=== PATIENT | female | born 1945 | race Caucasian/White ===

== ENCOUNTER 2020-09-28 08:59 | Emergency (ER) | payer MEDICARE, SELFPAY ==
[2020-09-28 09:01] VITALS: BP 146/78; PULSE 119; RESP 18; TEMP 36.6; O2SAT 99; BMI 33.0
--- NOTE | 2020-09-28 09:04 | ED_ITS ---
ED Disposition Clinical Impression: Erysipelas Disposition: Home, Self-Care Condition on Discharge: Good Instructions: Cellulitis Referrals: Panda Newell MD [Primary Care Provider] - 3 days Time of Disposition: 09:33 - Critical Care Critical Care Time: No Attestation: On , the high probability of a clinically significant, sudden or life threatening deterioration of the following system(s) required my full and direct attention, intervention and personal management. The time I documented below is in addition to time spent performing reported procedures but includes the following listed in this critical care notation. Medical Decision Making - Medical Records Medical records reviewed: Yes: I reviewed the patient's medical records. - Cade Inquiry Pt receiving controlled substance: No Medical Decision Narrative: 75yo F evaluated for possible infection of her left great toe after being scratched by her cat. Physical exam is not terribly remarkable except for 2 lesions consistent with a blood blister. No warmth, minimally tender, no pain with range of motion. We will start the patient on Augmentin to cover possible infection. Patient follow-up PCP Wednesday or Wednesday. General Adult HPI - General Stated complaint: Left big toe is swollen Time Seen by Provider: 09/28/20 09:04 - History of Present Illness HPI narrative: 75yo F with past medical history significant diabetes reports the emergency department secondary to concern for possible infection in her great toe. Patient reports the cat ran across her foot a week ago and she now has a few areas that are tender to palpate and appear to have small blisters. Patient denies any fever, nausea/vomit/diarrhea. Has not been seen for this until today. Denies pain with range of motion. Has occasional pain with walking. - Related Data Allergies Allergy/AdvReac Type Severity Reaction Status Date / Time DENTAL GLUE Allergy Unknown Uncoded 05/25/17 15:04 From CONTAC 12-HOUR Allergy Unknown Uncoded 05/25/17 15:04 INSULIN Allergy Unknown Uncoded 05/25/17 15:04 LATEX Allergy Unknown Uncoded 05/25/17 15:04 NUTS Allergy Unknown Uncoded 05/25/17 15:04 PCN (PENICILLIN) Allergy Unknown Uncoded 05/25/17 15:04 [facility] History - Hepatitis A Screen Drug use history?: No Attestation statement:: This patient has been screened for Hepatitis A risk factors. I have reviewed the patient's past medical history: Yes Medical History: Reports:: Diabetes Mellitus Type 2 ROS Obtained: Yes All systems reviewed & no additional complaints Physical Exam - General General appearance: alert, in no apparent distress - Head Head exam: atraumatic - Respiratory Respiratory exam: Absent: respiratory distress - Cardiovascular Cardiovascular exam: Present: regular rate, normal rhythm - Abdominal Exam Abdominal exam: Present: soft - Expanded Lower Extremity Exam Left Ankle exam: Present: normal inspection, full ROM. Absent: tenderness Foot/toe exam: Present: other (Left great toe with 2 blisters. No erythema. No pain with range of motion.) Neurovascular/Tendon exam: Present: normal capillary refill. Absent: pulse deficit, motor deficit, sensory deficit - Neurological Exam Neurological exam: Present: alert, oriented X3 - Psychiatric Psychiatric exam: Present: normal affect, normal mood - Skin Skin exam: Present: warm, dry, intact, normal color
[2020-09-28 09:30] VITALS: BP 117/58; PULSE 109; O2SAT 94
[2020-09-28 09:40] VITALS: BP 146/78; PULSE 98; RESP 18; TEMP 36.6; O2SAT 99
== END 2020-09-28 09:43 | disposition home or self-care (01) ==
PROVIDERS: Emergency Provider Family Medicine; PCP Family Medicine
DX: A46 Erysipelas (principal); S90.422A Blister (nonthermal), left great toe, initial encounter; E11.9 Type 2 diabetes mellitus without complications; R03.0 Elevated blood-pressure reading, without diagnosis of hypertension; Z88.0 Allergy status to penicillin; Z91.040 Latex allergy status
CPT/HCPCS: 99281

== ENCOUNTER 2020-12-12 20:29 | Emergency (ER) | payer MEDICARE, SELFPAY ==
[2020-12-12 20:37] VITALS: PULSE 135; RESP 20; O2SAT 97; BMI 33.4
[2020-12-12 20:40] VITALS: PULSE 135; RESP 18; O2SAT 98; BMI 33.3
--- NOTE | 2020-12-12 21:19 | HMH.EDUTC ---
[facility] [place] Disposition Clinical Impression: Urticaria Allergic reaction Qualifiers: Encounter type: initial encounter Qualified Code(s): T78.40XA - Allergy, unspecified, initial encounter Disposition: Home, Self-Care Condition on Discharge: Good Instructions: Hives, DI for Hives Additional Instructions: RETURN TO THE ER FOR ANY MOUTH OR THROAT SWELLING, CHEST PAIN, OR SHORTNESS OF BREATH. Take the medications as directed. Don't start the oral steroids until tomorrow since you had the shot here tonight. I encourage you to take benedryl every 6 hours for the next few days to try to block whatever you might be allergic to. You could be still getting exposed to it. GO TO THE ER FOR ANY WORSENING SYMPTOMS OR CONCERNS Prescriptions: methylPREDNISolone [Medrol] 4 mg PO DIRECTED 6 Days #21 tab.ds.pk Transmission Status: Received by [facility] #[id number] Referrals: Panda Newell MD [Primary Care Provider] - Time of Disposition: 21:32 Medical Decision Making - Medical Records Medical records reviewed: No: I reviewed the patient's medical records. - Acde Inquiry Pt receiving controlled substance: No Vital Signs: 12/12/20 20:37 12/12/20 20:40 12/12/20 21:24 Temperature 98 F Temperature Source Oral Pulse Rate 121 H Pulse Rate [Left Radial] 135 H 135 H Respiratory Rate 20 18 20 Blood Pressure 000/00 L 02 Sat by Pulse Oximetry 97 98 Oxygen Delivery Method Room Air Orders (Tests/Meds): ED MEDICATIONS Discontinued Medications Generic Name Dose Route Start Last Admin Trade Name Mp PRN Reason Stop Dose Admin Methylprednisolone Sodium Succinate 125 mg 12/12/20 21:18 12/12/20 21:22 Methylprednisolone Sod Succ 125mg Vial IM 12/12/20 21:19 125 mg ONCE ONE Administration [facility] [place] HPI - General Stated complaint: rash on body Time Seen by Provider: 12/12/20 21:20 Mode of Arrival: Ambulatory Source of Information: Patient Limitations: No Limitations Description of Symptoms (Recalled from Triage Doc. by RN): pt was cleaning the air vent in her camper when she started having itching on the inside of her upper arms. pt has a whelped, blistered large rash on the upper insides on her arms, on her abd, and on her legs. pt states there was a fly and thought she may have been bit until it started spreading. HEENT Symptoms (Recalled from RN notes): No Resp Symptoms (Recalled from RN notes): No Skin Symptoms (Recalled from RN notes): Yes MS Symptoms (Recalled from RN notes): No Functional Status (Recalled from RN notes): na - History of Present Illness Provider Complaint: She states that about 1 hour before she came here, she began having itching and hives on both her forearms. Since then the hives have spread and they are now on her chest, back, abdomen, buttocks, upper legs and neck. She denies any shortness of breath, chest pain, and swelling of her mouth or throat. - Related Data Previous Rx's Medication Instructions Recorded Amoxicillin/Potassium Clav 1 tab PO Q12H #14 tab 09/28/20 [Augmentin 875-125 Tablet] methylPREDNISolone [Medrol] 4 mg PO DIRECTED 6 Days #21 12/12/20 tab.[email or web address] Allergies Allergy/AdvReac Type Severity Reaction Status Date / Time DENTAL GLUE Allergy Unknown Uncoded 05/25/17 15:04 From CONTAC 12-HOUR Allergy Unknown Uncoded 05/25/17 15:04 INSULIN Allergy Unknown Uncoded 05/25/17 15:04 LATEX Allergy Unknown Uncoded 05/25/17 15:04 NUTS Allergy Unknown Uncoded 05/25/17 15:04 PCN (PENICILLIN) Allergy Unknown Uncoded 05/25/17 15:04 - Worker's Comp Is this a Worker's Comp case?: No H History - Hepatitis A Screen Drug use history?: No High risk sexual behaviors?: No History of sexually transmitted infection?: No Currently employed?: No Childcare worker?: No Do you have indoor plumbing?: Yes Do you have electricity?: Yes Attestation statement:: This patient has been screened for Hepatitis A risk factors.
[2020-12-12 21:24] VITALS: BP 000/00; PULSE 121; RESP 20; TEMP 36.6
== END 2020-12-12 21:38 | disposition home or self-care (01) ==
PROVIDERS: Emergency Provider Nurse Practitioner Family; PCP Family Medicine
DX: L50.0 Allergic urticaria (principal); E11.9 Type 2 diabetes mellitus without complications; Z88.0 Allergy status to penicillin; Z91.040 Latex allergy status
CPT/HCPCS: G0463; 96372; 99202

== ENCOUNTER 2021-01-02 19:06 | Emergency (ER) | payer MEDICARE, SELFPAY ==
[2021-01-02 19:10] VITALS: BP 162/124; PULSE 110; RESP 16; TEMP 36.6; O2SAT 96; BMI 33.4
--- NOTE | 2021-01-02 19:27 | HMH.EDUTC ---
[facility] [place] Disposition Clinical Impression: Vaginal yeast infection Disposition: Home, Self-Care Condition on Discharge: Good Instructions: DI for Vaginal Yeast Infection, Nystatin Topical Additional Instructions: Use medication as prescribed Make sure to Follow up with OBGYN or your Family Doctor if no improvement or any worsening of symptoms Return if needed Straight to ER if any life threatening symptoms Prescriptions: Nystatin [Nystatin Cr 100,000 Units/GM 30GM] 1 applicatio TP BID 14 Days #1 tube Transmission Status: Pending to [facility] #[id number] Referrals: Panda Newell MD [Primary Care Provider] - As needed Time of Disposition: 19:34 Medical Decision Making - Cade Inquiry Pt receiving controlled substance: No Cade was queried for this patient: No Vital Signs: 01/02/21 19:10 Temperature 97.9 F Temperature Source Temporal Artery Scan Pulse Rate [Left] 110 H Respiratory Rate 16 Blood Pressure [Right Arm] 162/124 H Blood Pressure Mean [Right Arm] 136 02 Sat by Pulse Oximetry 96 [facility] [place] HPI - General Stated complaint: Possible yeast infection Time Seen by Provider: 01/02/21 19:27 Mode of Arrival: Ambulatory Source of Information: Patient Limitations: No Limitations Description of Symptoms (Recalled from Triage Doc. by RN): pt c/o a yeast infection and itching in her urogenital area. HEENT Symptoms (Recalled from RN notes): No Resp Symptoms (Recalled from RN notes): No Skin Symptoms (Recalled from RN notes): No MS Symptoms (Recalled from RN notes): No Functional Status (Recalled from RN notes): na - History of Present Illness Provider Complaint: Patient state that she was recently on antibioitics and it caused her to get a yeast infection State that she seen her PCP and they give her a pill State that it didnt help so she seen her OBGYN and they give her Nystatin cream and it helped and cleared it up State that she is not sure what may have caused it to return but she is having redness and itching again in her vaginal area like she had before with yeast infection and wanted to come in and get some more cream to help - Related Data Previous Rx's Medication Instructions Recorded Amoxicillin/Potassium Clav 1 tab PO Q12H #14 tab 09/28/20 [Augmentin 875-125 Tablet] methylPREDNISolone [Medrol] 4 mg PO DIRECTED 6 Days #21 12/12/20 tab.ds.pk Nystatin [Nystatin Cr 100,000 1 applicatio TP BID 14 Days #1 tube 01/02/21 Units/GM 30GM] Allergies Allergy/AdvReac Type Severity Reaction Status Date / Time DENTAL GLUE Allergy Unknown Uncoded 05/25/17 15:04 From CONTAC 12-HOUR Allergy Unknown Uncoded 05/25/17 15:04 INSULIN Allergy Unknown Uncoded 05/25/17 15:04 LATEX Allergy Unknown Uncoded 05/25/17 15:04 NUTS Allergy Unknown Uncoded 05/25/17 15:04 PCN (PENICILLIN) Allergy Unknown Uncoded 05/25/17 15:04 - Worker's Comp Is this a Worker's Comp case?: No H History - Hepatitis A Screen Drug use history?: No High risk sexual behaviors?: No History of sexually transmitted infection?: No Currently employed?: No Childcare worker?: No Do you have indoor plumbing?: Yes Do you have electricity?: Yes Attestation statement:: This patient has been screened for Hepatitis A risk factors. I have reviewed the patient's past medical history: Yes Medical History: Reports:: Diabetes Mellitus Type 2 ROS Obtained: Yes All systems reviewed & no additional complaints, Yes Systems reviewed as appropriate & no additional complaints - Constitutional Constitutional: Reports system reviewed and no additional complaints, except as docu, Denies body ache, Denies chills, Denies fever(s) - ENT Ears, Nose, Mouth, and Throat: Reports system reviewed and no additional complaints, except as docu - Cardiovascular Cardiovascular: Reports system reviewed and no additional complaints, except as docu - Respiratory Respiratory: Reports system reviewed and no additional complaints, except as docu
[2021-01-02 19:29] VITALS: BP 144/77; PULSE 95; RESP 18; TEMP 36.6
== END 2021-01-02 19:37 | disposition home or self-care (01) ==
PROVIDERS: Emergency Provider Nurse Practitioner; PCP Family Medicine
DX: B37.3 Candidiasis of vulva and vagina (principal); E11.9 Type 2 diabetes mellitus without complications; Z88.0 Allergy status to penicillin
CPT/HCPCS: G0463; 99202

== ENCOUNTER 2021-01-16 16:52 | Emergency (ER) | payer MEDICARE, SELFPAY ==
[2021-01-16 16:53] VITALS: BP 141/83; PULSE 89; RESP 16; TEMP 36.8; O2SAT 98; BMI 32.1
--- NOTE | 2021-01-16 17:54 | HMH.EDUTC ---
[facility] [place] Disposition Clinical Impression: Urticaria Disposition: Home, Self-Care Condition on Discharge: Good Instructions: DI for General Allergic Reactions, Hydrocortisone Topical Additional Instructions: Use over the counter Hydrocortisone on areas may help with itching Follow up with your Family Doctor if you continue to have periodic breakouts and reactions Return if needed Straight to ER if any life threatening symptoms Referrals: Panda Franks MD [Primary Care Provider] - As needed Time of Disposition: 18:15 Medical Decision Making - Cade Inquiry Pt receiving controlled substance: No Cade was queried for this patient: No Vital Signs: 01/16/21 16:53 01/16/21 18:12 Temperature 98.3 F 98.3 F Temperature Source Oral Pulse Rate 89 Pulse Rate [Left Radial] 89 Respiratory Rate 16 16 Blood Pressure 141/83 H Blood Pressure [Right Arm] 141/83 H Blood Pressure Mean [Right Arm] 102 02 Sat by Pulse Oximetry 98 Oxygen Delivery Method Room Air Room Air Orders (Tests/Meds): ED MEDICATIONS Discontinued Medications Generic Name Dose Route Start Last Admin Trade Name Mp PRN Reason Stop Dose Admin Methylprednisolone Sodium Succinate 125 mg 01/16/21 17:56 01/16/21 18:03 Methylprednisolone Sod Succ 125mg Vial IM 01/16/21 17:57 125 mg ONCE ONE Administration Medical Decision Narrative: Patient states that she has taken SoluMedrol in the past without reaction or complications States that she also still has the Medrol pack at home from the last allergic reaction that she has not taken yet [facility] [place] HPI - General Stated complaint: Blisters on body Time Seen by Provider: 01/16/21 17:54 Mode of Arrival: Ambulatory Source of Information: Patient Limitations: No Limitations Description of Symptoms (Recalled from Triage Doc. by RN): c/o blisters over body started at 1600 today HEENT Symptoms (Recalled from RN notes): No Resp Symptoms (Recalled from RN notes): No Skin Symptoms (Recalled from RN notes): Yes MS Symptoms (Recalled from RN notes): No Functional Status (Recalled from RN notes): na - History of Present Illness Provider Complaint: Patient states that she has been having a reaction to something on and off State that last reaction was in December and she had to come in and get a shot and it helped State that today she sit in a camping chair and started breaking out shortly after - Related Data Home Medications Medication Instructions Recorded Confirmed linagliptin 5 mg tablet 5 mg PO DAILY 01/14/21 metformin 500 mg tablet 500 mg PO BID 01/14/21 simvastatin 20 mg tablet 20 mg PO HS 01/14/21 Allergies Allergy/AdvReac Type Severity Reaction Status Date / Time DENTAL GLUE Allergy Unknown Uncoded 01/14/21 10:48 From CONTAC 12-HOUR Allergy Unknown Uncoded 01/14/21 10:48 INSULIN Allergy Unknown Uncoded 01/14/21 10:48 LATEX Allergy Unknown Uncoded 01/14/21 10:48 NUTS Allergy Unknown Uncoded 01/14/21 10:48 PCN (PENICILLIN) Allergy Unknown Uncoded 01/14/21 10:48 - Worker's Comp Is this a Worker's Comp case?: No [facility] History - Hepatitis A Screen Drug use history?: No High risk sexual behaviors?: No History of sexually transmitted infection?: No Currently employed?: No Childcare worker?: No Do you have indoor plumbing?: Yes Do you have electricity?: Yes Attestation statement:: This patient has been screened for Hepatitis A risk factors. I have reviewed the patient's past medical history: Yes Medical History: Reports:: Diabetes Mellitus Type 2 - Social History Smoking Status: Never smoker Alcohol Intake: never Occupational Status: disabled ROS Obtained: Yes All systems reviewed & no additional complaints, Yes Systems reviewed as appropriate & no additional complaints - Constitutional Constitutional: Reports system reviewed and no additional complaints, except as docu Physical Exam - General General appearance: alert, in no apparent distress - Resp
[2021-01-16 18:12] VITALS: BP 141/83; PULSE 89; RESP 16; TEMP 36.8; O2SAT 98
== END 2021-01-16 18:15 | disposition home or self-care (01) ==
PROVIDERS: Emergency Provider Nurse Practitioner; PCP Internal Medicine Adolescent Medicine
DX: L50.9 Urticaria, unspecified (principal); E11.9 Type 2 diabetes mellitus without complications; E78.5 Hyperlipidemia, unspecified; Z88.0 Allergy status to penicillin; Z79.899 Other long term (current) drug therapy
CPT/HCPCS: G0463; 96372; 99202

== ENCOUNTER → 2021-01-17 10:16 | Outpatient (CLI) | payer MEDICARE, SELFPAY ==
--- NOTE | 2021-01-17 10:16 | MM_ITS ---
PROCEDURE: MM DIG SCREENING MAMM BI W/CAD Digital Breast Tomosynthesis Included CLINICAL INDICATION: screening mammogram COMPARISON: MG MM MOBILE MAMMO DIGITAL SCREEN W CAD PAMELLA from 12/22/2012 MG MM MOBILE MAMMO DIGITAL SCREEN W CAD PAMELLA from 01/04/2014 MG DMSB DIG MAMM-SCREEN PAMELLA from 02/11/2016 MG DMSB DIG MAMM-SCREEN [facility]AMELLA W/CAD from 04/09/2017 TECHNIQUE: Standard CC and MLO images and 3D Tomosynthesis was obtained. R2 CAD reviewed. FINDINGS: Mostly fatty replaced fibroglandular tissue. No suspicious appearing mass, malignant-appearing microcalcification, architectural distortion, or skin thickening. No significant change. No evidence of malignancy. Benign-appearing calcifications are noted. IMPRESSION: Benign findings, no change with no evidence of malignancy BI-RAD Category: 2 Benign Finding FOLLOW-UP: 1 YR 1 Year Follow-up (A letter has been sent to the patient regarding results of the study.) Dictated by: Juan Shah MD 01/24/2021 12:29 Juan Shah MD in [place] 01/24/2021 12:29
== END ==
PROVIDERS: PCP Family Medicine; Visit Provider Obstetrics & Gynecology
DX: Z12.31 Encounter for screening mammogram for malignant neoplasm of breast (principal)
CPT/HCPCS: 77063; 77067

== ENCOUNTER 2021-12-20 20:37 | Emergency (ER) | payer MEDICARE, SELFPAY ==
[2021-12-20 22:56] VITALS: BP 0/0; PULSE 0; RESP 0; TEMP -17.7; TEMP 0; O2SAT 0
== END 2021-12-20 22:57 | disposition left against medical advice (07) ==
LOC: ER 22:52
PROVIDERS: Emergency Provider Emergency Medicine; PCP Nurse Practitioner Family
DX: Z53.21 Procedure and treatment not carried out due to patient leaving prior to being seen by health care provider (principal)

== ENCOUNTER → 2021-12-23 06:46 | Outpatient (CLI) | payer MEDICARE, SELFPAY | PROVIDERS: PCP Nurse Practitioner Family; Visit Provider Physician Assistant | DX: E11.65 Type 2 diabetes mellitus with hyperglycemia (principal) ==

== ENCOUNTER → 2021-12-24 07:15 | Outpatient (CLI) | payer MEDICARE, SELFPAY ==
[2021-12-24 08:16] LABS: Alanine Aminotransferase 11 U/L (12-78); Albumin Level 3.7 g/dl (3.5-5.0); Albumin/Globulin Ratio 1.4 (1.1-1.8); Alkaline Phosphatase 62 U/L (38-126); Anion Gap 10.2 mEq/L (5-15); Aspartate Amino Transferase 17 U/L (14-36); Bilirubin,Total 0.4 mg/dl (0.2-1.3); Blood Urea Nitrogen 9 mg/dl (7-17); Calcium 9.7 mg/dl (8.4-10.2); Carbon Dioxide 29 mmol/L (22.0-30.0); Chloride 105 mmol/L (98-107); Chol/HDL Ratio 3.2 (1-3.5); Cholesterol 145 mg/dl (140-200); Estimated Glomerular Filt Rate 82 ml/min (>60); GFR (African American) 99 ML/MIN (>60); Globulin 2.6 g/dL (1.3-3.2); Glucose 137 mg/dl (74-100); HDL Cholesterol 45 mg/dl (40-60); Potassium 5.2 mmoL/L (3.5-5.1); Sodium 139 mmol/L (136-145); Total Protein,Serum 6.3 g/dl (6.3-8.2); Triglycerides 156 mg/dl (30-150); VLDL Cholesterol 31 mg/dL (0-40)
[2021-12-24 08:27] LABS: Direct LDL Cholesterol 70.29 mg/dL (100-129)
[2021-12-24 09:24] LABS: Hemoglobin A1C 6.9 % (4.0-6.0)
== END ==
PROVIDERS: PCP Nurse Practitioner Family; Visit Provider Physician Assistant
DX: E11.65 Type 2 diabetes mellitus with hyperglycemia (principal); E78.00 Pure hypercholesterolemia, unspecified; Z79.84 Long term (current) use of oral hypoglycemic drugs
CPT/HCPCS: 36415; 80053; 80061; 83036

== ENCOUNTER → 2022-11-24 07:17 | Outpatient (CLI) | payer MEDICARE, SELFPAY ==
[2022-11-24 09:04] LABS: Alanine Aminotransferase 17 U/L (12-78); Albumin Level 3.8 g/dl (3.5-5.0); Albumin/Globulin Ratio 1.4 (1.1-1.8); Alkaline Phosphatase 66 U/L (38-126); Anion Gap 17.3 mEq/L (5-15); Aspartate Amino Transferase 22 U/L (14-36); Bilirubin,Total 0.7 mg/dl (0.2-1.3); Blood Urea Nitrogen 14 mg/dl (7-17); Calcium 9.8 mg/dl (8.4-10.2); Carbon Dioxide 25 mmol/L (22.0-30.0); Chloride 101 mmol/L (98-107); Chol/HDL Ratio 2.7 (1-3.5); Cholesterol 173 mg/dl (140-200); Estimated Glomerular Filt Rate 81 ml/min (>60); GFR (African American) 98 ML/MIN (>60); Globulin 2.7 g/dL (1.3-3.2); Glucose 153 mg/dl (74-100); HDL Cholesterol 64 mg/dl (40-60); Potassium 4.3 mmoL/L (3.5-5.1); Sodium 139 mmol/L (136-145); Total Protein,Serum 6.5 g/dl (6.3-8.2); Triglycerides 151 mg/dl (30-150); VLDL Cholesterol 30 mg/dL (0-40)
[2022-11-24 09:33] LABS: Thyroid Stimulating Hormone 2.36 uIU/mL (0.465-4.68)
[2022-11-24 13:42] LABS: Microalbumin/Creatinine Ratio 7.5
[2022-11-24 13:43] LABS: Creatinine,Urine Random 109 mg/dL (Not Estab.)
== END ==
PROVIDERS: PCP Nurse Practitioner Family; Visit Provider Physician Assistant
DX: E78.00 Pure hypercholesterolemia, unspecified (principal); E11.65 Type 2 diabetes mellitus with hyperglycemia; Z79.84 Long term (current) use of oral hypoglycemic drugs
CPT/HCPCS: 36415; 80053; 80061; 82043; 82570; 84443

== ENCOUNTER 2022-12-01 09:55 | Day surgery (SDC) | payer MEDICARE, SELFPAY ==
[2022-11-26 16:05] VITALS: BMI 32.4
[2022-12-01 10:31] VITALS: BP 147/91; PULSE 116; RESP 18; TEMP 36.3; O2SAT 98
[2022-12-01 10:47] LABS: POC Glucose,Bedside 137 (70-110)
[2022-12-01 10:55] VITALS: BP 146/88; PULSE 82; RESP 18; O2SAT 99
[2022-12-01 11:00] VITALS: BP 159/76; PULSE 91; RESP 18; O2SAT 99
[2022-12-01 11:05] VITALS: BP 159/83; PULSE 86; RESP 18; O2SAT 99
[2022-12-01 11:10] VITALS: BP 140/70; PULSE 81; RESP 18; O2SAT 99
[2022-12-01 11:17] VITALS: BP 113/59; PULSE 87; RESP 18; TEMP 36.8; O2SAT 97
== END 2022-12-01 11:30 | disposition home or self-care (01) ==
PROVIDERS: PCP Nurse Practitioner Family; Visit Provider Ophthalmology
DX: E11.36 Type 2 diabetes mellitus with diabetic cataract (principal); H25.9 Unspecified age-related cataract
CPT/HCPCS: 66984; 82962; V2632

== ENCOUNTER 2023-09-20 09:09 | Outpatient (CLI) | payer MEDICARE, SELFPAY ==
[2023-09-20 10:03] LABS: Basophils # 0.1 K/mm3 (0-0.2); Eosinophils # 0.3 K/mm3 (0.0-0.4); Eosinophils % 4.1 % (0.1-12.0); Hematocrit 44.5 % (37.0-47.0); Hemoglobin 14.4 g/dL (12.2-16.2); Lymphocytes # 2.3 K/mm3 (0.7-4.5); Lymphocytes % 31.1 % (10-50); Mean Corpuscular HGB Conc 32.3 g/dL (31.8-35.4); Mean Corpuscular Hemoglobin 31.6 pg (27.0-31.2); Mean Platelet Volume 8.7 fl (7.4-10.4); Monocytes # 0.4 K/mm3 (0.1-1.0); Monocytes % 4.8 % (1.7-9.3); Neutrophils # 4.3 K/mm3 (1.8-7.8); Platelet Count 207 K/mm3 (142-424); Red Blood Count 4.55 M/mm3 (4.20-5.40); Red Cell Distribution Width 13.5 % (11.5-17.5); White Blood Count 7.2 K/mm3 (4.8-10.8)
[2023-09-20 10:45] LABS: Iron 106 ug/dL (37-170)
[2023-09-20 10:45] LABS: Alanine Aminotransferase 11 U/L (12-78); Albumin/Globulin Ratio 1.6 (1.1-1.8); Alkaline Phosphatase 66 U/L (38-126); Anion Gap 9.5 mEq/L (5-15); Aspartate Amino Transferase 19 U/L (14-36); Bilirubin,Total 1.1 mg/dl (0.2-1.3); Blood Urea Nitrogen 11 mg/dl (7-17); Calcium 9.6 mg/dl (8.4-10.2); Carbon Dioxide 28 mmol/L (22.0-30.0); Chloride 105 mmol/L (98-107); Chol/HDL Ratio 2.4 (1-3.5); Cholesterol 181 mg/dl (140-200); Estimated Glomerular Filt Rate 70 ml/min (>60); GFR (African American) 84 ML/MIN (>60); Globulin 2.5 g/dL (1.3-3.2); Glucose 179 mg/dl (74-100); HDL Cholesterol 74 mg/dl (40-60); Potassium 4.5 mmoL/L (3.5-5.1); Sodium 138 mmol/L (136-145); Total Protein,Serum 6.5 g/dl (6.3-8.2); Triglycerides 125 mg/dl (30-150); VLDL Cholesterol 25 mg/dL (0-40)
[2023-09-20 10:55] LABS: Total Iron Binding Capacity 269 ug/dL (265-497)
[2023-09-20 11:01] LABS: Free T4 (Free Thyroxine) 1.32 ng/dl (0.78-2.19)
[2023-09-20 11:11] LABS: 25-OH Vitamin D, Total < 12.8 ng/mL (30-100)
[2023-09-20 11:16] LABS: Thyroid Stimulating Hormone 1.49 uIU/mL (0.465-4.68)
[2023-09-20 11:21] LABS: Ferritin 64.1 ng/ml (11.1-264)
[2023-09-20 12:25] LABS: Vitamin B12 241 pg/mL (239-931)
[2023-09-20 15:06] LABS: Microalbumin/Creatinine Ratio 9.4
[2023-09-20 15:09] LABS: Creatinine,Urine Random 193 mg/dL (Not Estab.)
== END 2023-09-20 23:59 | disposition home or self-care (01) ==
LOC: LAB 09:10
PROVIDERS: Nurse Practitioner; PCP Family Medicine; Visit Provider Physician Assistant
DX: E11.65 Type 2 diabetes mellitus with hyperglycemia (principal); E78.00 Pure hypercholesterolemia, unspecified; L65.9 Nonscarring hair loss, unspecified; L60.3 Nail dystrophy; E55.9 Vitamin D deficiency, unspecified; Z79.84 Long term (current) use of oral hypoglycemic drugs
CPT/HCPCS: 36415; 80053; 80061; 82043; 82306; 82570; 82607; 82728; 83540; 83550; 84439; 84443; 85025

== ENCOUNTER 2023-09-21 14:34 | Outpatient (CLI) | payer MEDICARE, SELFPAY ==
--- NOTE | 2023-09-21 14:40 | MM_ITS ---
PROCEDURE INFORMATION: Exam: MG Bilateral Screening 3D Mammography Exam date and time: 09/21/2023 2:30 PM Age: 78 years old Clinical indication: Screening examination TECHNIQUE: Imaging protocol: Bilateral Screening tomosynthesis and 2D mammography including computer-aided detection (CAD) when performed. COMPARISON: 1. MG MM DIG SCREENING MAMM BI W/CAD 01/17/2021 10:41 AM 2. MG DMSB DIG MAMM-SCREEN PAMELLA W/CAD 04/09/2017 10:55 AM FINDINGS: MAMMOGRAPHY: Breast composition: There are scattered areas of fibroglandular density. Mass: None. Architectural distortion: None. Calcifications: No suspicious calcifications. Asymmetric density: None. Skin thickening: None. Axillary adenopathy: None. IMPRESSION: No mammographic evidence of malignancy. Annual screening is recommended unless otherwise clinically indicated. ASSESSMENT: BI-RADS Category 1: Negative
== END 2023-09-21 23:59 ==
LOC: RAD 14:34
PROVIDERS: PCP Family Medicine; Visit Provider Family Medicine
DX: Z12.31 Encounter for screening mammogram for malignant neoplasm of breast (principal)
CPT/HCPCS: 77063; 77067

== ENCOUNTER 2024-09-21 08:29 | Outpatient (CLI) | payer MEDICARE, SELFPAY ==
--- OUTSIDE RECORDS SUMMARY | 2024-09-21 08:32 | XMS_ITS ---
Author Organization Unknown [facility] Start Date Provider Encounter for Check-up [id number] JULIO Corey
--- NOTE | 2024-09-21 08:37 | MM_ITS ---
PROCEDURE INFORMATION: Exam: MG Bilateral Screening 3D Mammography Exam date and time: 09/21/2024 8:43 AM Age: 79 years old Clinical indication: Screening mammogram TECHNIQUE: Imaging protocol: Bilateral Screening tomosynthesis and 2D mammography including computer-aided detection (CAD) when performed. COMPARISON: 1. MG MM DIG SCREENING MAMM BI W/CAD 09/21/2023 2:30 PM 2. MG MM DIG SCREENING MAMM BI W/CAD 01/17/2021 10:41 AM 3. MG DMSB DIG MAMM-SCREEN PAMELLA W/CAD 04/09/2017 10:55 AM 4. MG DMSB DIG MAMM-SCREEN PAMELLA 02/11/2016 9:32 AM FINDINGS: MAMMOGRAPHY: Breast composition: There are scattered areas of fibroglandular density. Mass: None. Architectural distortion: No new or suspicious architectural distortion. Calcifications: No new or suspicious calcifications are present Asymmetric density: No new or suspicious asymmetric density is present Skin thickening: None. Axillary adenopathy: None. IMPRESSION: No mammographic evidence of malignancy. Recommend annual screening mammography unless otherwise clinically indicated. ASSESSMENT: BI-RADS category 1: Negative.
== END 2024-09-21 23:59 | disposition home or self-care (01) ==
LOC: RAD 08:30
PROVIDERS: PCP Family Medicine; Visit Provider Family Medicine
DX: Z12.31 Encounter for screening mammogram for malignant neoplasm of breast (principal)
CPT/HCPCS: 77063; 77067

== ENCOUNTER 2024-10-18 06:26 | Emergency (ER) | payer MEDICARE, SELFPAY ==
--- NOTE | 2024-10-18 06:29 | XR_ITS ---
FINAL REPORT CLINICAL HISTORY: R thumb pain over extensor tendon, recent foosh COMPARISON: None FINDINGS: RIGHT HAND Three views demonstrate no acute fracture or dislocation. 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 Moderate chondrocalcinosis of the triangular fibrocartilage. The soft tissues are unremarkable. IMPRESSION: No acute bony abnormality. Reviewed, Interpreted and Dictated by Johnny Matthew MD Transcribed by Nicki Green Authenticated and [facility]
--- OUTSIDE RECORDS SUMMARY | 2024-10-18 06:33 | XMS_ITS | Data Portability ---
Author Organization [facility] BENNETT Aranda [place] CLOS[place] Address [address] [place] [address] Care Team Providers Care Regulatory Affairs Manager Name Role Phone MILTON MENDIOLA Primary Care Provider [phone] Assessment No assessment recorded. Plan of Treatment Reminders Order Date Submit Date Provider Last Modified By Organization Details Last Modified Time Details Appointments None record ed. Lab None record ed. Referral None record ed. Procedures None record ed. Surgeries None record ed. Imaging None record ed. Medication Orders None record ed. Patient TargetsNo targets recorded. Patient Instructions Encounter Date Encounter Id Patient Instructions Last Modified By Organization Details Last Modified Time 09/23/2022 [id number] 1. Recommends using a pulsating Waterpik to remove food particles from tonsils. 2. Follow up prn. 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 Problems No Known Problems Procedures Surgical History Date Name Laterality Status Provider Name and Address Organization Details Recorded Time procedure on knee completed Michelle Ara [facility] 09/23/2022 13:34:08 Imaging Results None recorded. Procedure Notes None recorded. Medical Equipment None Reported. Allergies No known drug allergies Medications Name Sig Start Date Stop Date Status Note LastModified by Organization Details LastModified Time fluconazole 100 mg tablet TAKE 1 TABLET BY MOUTH DAILY FOR 14 DAYS 09/23 completed Not Available Not Available Not Available metformin 500 mg tablet TAKE 2 TABLETS BY MOUTH TWICE DAILY active Not Available Not Available No t Available fluconazole 150 mg tablet TAKE 1 TABLET BY MOUTH ONCE DAILY FOR 5 DAYS DIRECTED 09/23 completed Not Available Not Available Not Available simvastatin 20 mg tablet TAKE 1 TABLET BY MOUTH EVERY EVENING active Not Available Not Available No t Available mupirocin 2 % topical ointment APPLY TOPICALLY TO THE AFFECTED AREA THREE TIMES DAILY FOR 7 DAYS 09/23 completed Not Available Not Available Not Available clotrimazol e 1 % topical cream APPLY TOPICALLY TO THE AFFECTED AREA THREE TIMES DAILY FOR 14 DAYS 09/23 completed Not Available Not Available Not Available Tradjenta 5 mg tablet TAKE 1 TABLET BY MOUTH DAILY active Not Available Not Available No t Available RectaSmooth e 5 % topical cream APPLY TOPICALLY TO THE AFFECTED AREA FOUR TIMES DAILY FOR 7 DAYS NEEDED 09/23 completed Not Available Not Available Not Available Vitals Date Recorded Body weight Body mass index (BMI) Body height Body temperature Heart rate Systolic blood pressure Diastolic blood pressure Provider Name and Address Organization Details Last Updated DateTime 3 03364.0 2 g 32.5 kg/m2 170.18 cm 96.8 [degF] 86 /min 135 mm[Hg] 66 mm[Hg] Michelle Ara [facility] 13:39:14 Social History None recorded. Functional Status Question Answer Note LastModified by Organization D etails LastModified Time What is your level of alcohol consumption? None escime Information not available 09/23/2022 Mental Status None recorded. Family History Relationship Description Onset Age of this Age Resolved Age Notes LastModified by Organization Details LastModified Time Father No current problems or disability escime Not available 09/23 13:34:21 Mother No current problems or disability escime Not available 09/23 13:34:21 Medical History Condition Response Cancer N Bleeding Disorder N Anesthesia Complications N Diabetes Y Hypertension N Gynecological HistoryNo gynecological history recorded. 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 Benign par oxysmal positional vertigo 501996838 H81.10 hx of Health Concerns Section Related Observation LastModified by Organization Detai ls LastModified Time None Recorded Concern Status LastModified by Organization Details LastModified Time None Recorded Advance Directives Directive None Recorded Payers Insurance Date Sequence Insurance Name Policy Number Policy Mc Covered Member ID Mc Member ID Guarantor Name 09/23/2022 1 [employer] (MEDICARE REPLACEMENT/A DVANTAGE - PPO) Cristina Burnett [id number] Cristina Burnett Notes Date Note Type Note Provider Name and Address Organization Details Recorded Time 09/23/2022 text/html Cristina is a 77 ye ar old female who comes in today for consultation at the request of Dr. Milton Mendiola for an evaluation of her tonsils. 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 She has issues with food particles getting stuck in the pockets of her tonsils. She has tried using objects to get the particles out in the past with no success. Additionally, Cristina mentions that she suffered from dizziness in March when she moved her head a certain way. TIM MORA MD [address] [place] [address], [phone], [facility] 09/23/2022 13:54:40 OBGyn Episode No OBEpisode recorded.
[2024-10-18 06:35] VITALS: BP 169/99; PULSE 87; PULSE 90; RESP 16; TEMP 36.6; O2SAT 98; O2SAT 99; BMI 30.4
--- NOTE | 2024-10-18 06:35 | ED_ITS ---
Discharge Plan Disposition Patient Disposition: Home, Self-Care Prescriptions Prescriptions: No Action metformin 500 mg tablet 500 mg PO BID Tradjenta 5 mg tablet 5 mg PO DAILY simvastatin 20 mg tablet 20 mg PO HS Referrals Follow up/Referrals: Sriram Corey MD [Primary Care Provider] - See instructions Activity Restrictions/Add. Instructions Additional Instructions/Restrictions: Please follow-up with the orthopedic clinic, if you develop redness, fevers, numbness or tingling please present back to the emergency department for further management. The orthopedic clinic number is [id number] Clinical Impressions Clinical Impression: Acute pain of right wrist Print Language Print Language: [place] Discharge ED Provider: Gabriel Burnett General Adult HPI <Cecelia Saavedra MD - Last Filed: 10/18/24 06:48> General Chief complaint: Extremity Injury, Upper Stated complaint: R hand pain Time Seen by Provider: 10/18/24 06:29 History of Present Illness HPI narrative: 79-year-old female presents to the ER with complaints of right hand pain. at bedside also contributes to history. Patient reports 1 week ago she had a low mechanism of injury fall and did land on the right hand. A few days ago she was moving boxes and twisted the left hand funny and since that time she has had progressive pain along right thumb and demonstrates the extensor tendon area. She has pain with flexion but worse pain with extension. No fevers or chills. She has tried aspirin and Voltaren without significant relief. Patient presented to the ER this morning because it was still bothering her when she woke up. No other complaints or concerns. She is hoping to get an x-ray. Related Data Home Medications ?Medication ?Instructions ?Recorded ?Confirmed linagliptin 5 mg tablet (Tradjenta) 5 mg PO DAILY Diabetes 01/14/21 11/26/22 metformin 500 mg tablet 500 mg PO BID Diabetes 01/14/21 11/26/22 simvastatin 20 mg tablet 20 mg PO HS HLD 01/14/21 11/26/22 Allergies Allergy/AdvReac Type Severity Reaction Status Date / Time DENTAL GLUE Allergy Unknown Uncoded 01/14/21 10:48 From CONTAC 12-HOUR Allergy Unknown Uncoded 01/14/21 10:48 INSULIN Allergy Unknown Uncoded 01/14/21 10:48 LATEX Allergy Unknown Uncoded 01/14/21 10:48 NUTS Allergy Unknown Uncoded 01/14/21 10:48 PCN (PENICILLIN) Allergy Unknown Uncoded 01/14/21 10:48 PFSH <Cecelia Saavedra MD - Last Filed: 10/18/24 06:48> PFS Disclaimer: The information contained in this section may have been updated after the patient was seen, as this information can be updated by other users. Medical History (Updated 10/18/24 @ 07:47 by Gabriel Burnett MD) History of hyperlipidemia History of diabetes mellitus Surgical History History of toe surgery History of arthroscopy of right knee Family History Other No significant family history Social History Smoking Status: Never smoker alcohol intake: never current occupational status: disabled Travel in the last 8 weeks?: None Have you lived/traveled outside US in past 30 days?: No Contact w/someone who lives/traveled outside US past 30 days?: No Exposure to someone with infectious disease in past 14 days?: No Do you have a fever (greater than 100.4 F or 38 C)?: No Have you tested positive for COVID-19?: No Exposed to someone with COVID-19 in past 14 days?: No Do you have a sore throat?: No Do you have a cough?: No Do you have any weakness?: No Do you have any diarrhea?: No Are you experiencing any unusual bleeding?: No Do you have any muscle aches/pain?: No Do you have any abdominal pain?: No Are you experiencing loss of taste or smell?: No Other Medical History Have you received the Flu Vaccine for this season: No Have you received the Pneumonia Vaccine: Yes <Cecelia Saavedra MD - Last Filed: 10/18/24 06:48> ROS Obtained: Yes Systems reviewed as appropriate & no additional complaints except as documented Per HPI Physical Exam <Cecelia Saavedra MD - Last Filed: 10/18/24 06:48> General General appearance: alert and in no apparent distress Head Head exam: atraumatic and normocephalic Eye Eye exam: Present PERRL and EOMI ENT ENT exam: Present mucous membranes moist Neck Neck exam: Present normal inspection and full ROM Chest Chest inspection: Present symmetric chest wall rise Respiratory Respiratory exam: Absent respiratory distress or stridor Cardiovascular Cardiovascular exam: Present regular rate and normal rhythm Extremities Exam Extremities exam: Absent full ROM (Range of motion of the right thumb and wrist limited secondary to pain) Expanded Upper Extremity Exam Right: Hand exam: Present tenderness; Absent swelling, laceration, deformity, crepitus or erythema Hand L/R back image: 2 1. Area of tenderness along the extensor tendon of the right thumb Neurological Exam Neurological exam: Present alert and oriented X3; Absent motor sensory deficit Psychiatric Psychiatric exam: Present normal affect and normal mood Skin Skin exam: Present warm and dry Medical Decision Making <Cecelia Saavedra MD - Last Filed: 10/18/24 06:48> Medical Records Medical records reviewed: Yes I reviewed the patient's medical records. Screening: Per USPSTF and CDC recommendations, given the prevalence of disease in our region, it is our hospital?s policy to screen for HIV and viral Hepatitis for all patients aged 18 and over and those with ongoing risk factors. Cade Inquiry Pt receiving controlled substance: No Vital Signs: 10/18/24 06:35 10/18/24 06:35 10/18/24 07:52 Temperature 97.9 F 97.6 F Temperature Source Oral Oral Pulse Rate 90 84 Pulse Rate [Left Radial] 87 Respiratory Rate 16 18 Blood Pressure 169/99 H 115/70 Blood Pressure [Left Arm] 169/99 H Blood Pressure Mean [Left Arm] 122 Blood Pressure Source Automatic Cuff Blood Pressure Source [Left Arm] Automatic Cuff Blood Pressure Position Supine Blood Pressure Position [Left Arm] Supine 02 Sat by Pulse Oximetry 99 98 Oxygen Delivery Method Room Air Room Air Orders (Tests/Meds): ORDERS Category Date Time Status Hand XR right minimum 3 views [XR hand RT min 3V] Stat Exams 10/18/24 06:29 Completed XR wrist RT min 3V Stat Exams 10/18/24 06:41 Completed Medical Decision Narrative: In summary, this 79-year-old female presents to the emergency department today with right thumb pain. On initial evaluation patient is hemodynamically stable, afebrile, patient has tenderness palpation along the extensor tendon of the right thumb with pain radiating into the forearm, positive Yessica test, neurovascularly intact, no deformity, swelling, or evidence of infection. 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 With recent fall, there is still the possibility of osseous injury. X-ray right hand and wrist were ordered. Patient handed off to Dr. Burnett in stable condition pending radiology studies. <Gabriel Burnett MD - Last Filed: 10/18/24 07:53> Vital Signs: 10/18/24 06:35 10/18/24 06:35 10/18/24 07:52 Temperature 97.9 F 97.6 F Temperature Source Oral Oral Pulse Rate 90 84 Pulse Rate [Left Radial] 87 Respiratory Rate 16 18 Blood Pressure 169/99 H 115/70 Blood Pressure [Left Arm] 169/99 H Blood Pressure Mean [Left Arm] 122 Blood Pressure Source Automatic Cuff Blood Pressure Source [Left Arm] Automatic Cuff Blood Pressure Position Supine Blood Pressure Position [Left Arm] Supine 02 Sat by Pulse Oximetry 99 98 Oxygen Delivery Method Room Air Room Air Orders (Tests/Meds): ORDERS Category Date Time Status Hand XR right minimum 3 views [XR hand RT min 3V] Stat Exams 10/18/24 06:29 Completed XR wrist RT min 3V Stat Exams 10/18/24 06:41 Completed Medical Decision Narrative: In summary, this 79-year-old female presents to the emergency department today with right thumb pain. On initial evaluation patient is hemodynamically stable, afebrile, patient has tenderness palpation along the extensor tendon of the right thumb with pain radiating into the forearm, positive Yessica test, neurovascularly intact, no deformity, swelling, or evidence of infection. 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 With recent fall, there is still the possibility of osseous injury. X-ray right hand and wrist were ordered. Patient handed off to Dr. Burnett in stable condition pending radiology studies. Upon assumption of my care patient's well-appearing, has no swelling or erythema with no history of fevers. Discussed with patient at bedside about follow-up with orthopedic surgery and will place patient into a thumb spica splint. X- rays on my independent interpretation showed no fracture or dislocation. Final results showed no acute bony abnormality. Patient was placed in a thumb spica splint and was given orthopedic follow-up. Given discharge instructions, all questions answered, patient discharged in stable condition. Critical Care <Cecelia Saavedra MD - Last Filed: 10/18/24 06:48> Critical Care Time Critical Care Time: No
--- NOTE | 2024-10-18 06:41 | XR_ITS ---
FINAL REPORT CLINICAL HISTORY: recent foosh, TTP on thumb extensor area COMPARISON: None FINDINGS: RIGHT WRIST Three views demonstrate no acute fracture or dislocation. 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 There are mild hypertrophic changes at the basilar joint. The soft tissues are unremarkable. IMPRESSION: No acute bony abnormality. Reviewed, Interpreted and Dictated by Johnny Matthew MD Transcribed by Nicki Green Authenticated and . [facility]
[2024-10-18 07:52] VITALS: BP 115/70; PULSE 84; RESP 18; TEMP 36.4; O2SAT 98
== END 2024-10-18 07:57 | disposition home or self-care (01) ==
PROVIDERS: Emergency Provider Student in an Organized Health Care Education/Training Program; PCP Family Medicine
DX: M25.531 Pain in right wrist (principal)
CPT/HCPCS: 73110; 73130; 99284

== ENCOUNTER 2025-01-29 16:16 | Outpatient (CLI) | payer MEDICARE, SELFPAY ==
--- OUTSIDE RECORDS SUMMARY | 2024-12-27 14:30 | XMS_ITS | Encounter Summary ---
[facility] Address [address] [place] [id number] Care Team Providers Care Personal Development Mentor Name Role Phone Panda Newell MD Primary Care Provider + Reason for Visit * Reason Comments Follow-up Skin problem left toe injury Encounter Details Date Type Department Care Team (Late st Contact Info) Description 12/27/2024 2:30 PM EDT Office Visit [facility] [address] [place] [address] Kristy Durant, BOOKING POLICE OFFICER [address] [place] [address] Skin candidiasis (Primary Dx); SIMI (generalized anxiety disorder); Pain of toe of left foot Social History Tobacco Use Types Packs/Day Years Used Date Smoking Tobacco: Never Smokeless Tobacco: Never Alcohol Use Standard Drinks/Week Comments Never 0 (1 standard drink = 0.6 oz pur e alcohol) AUDIT-C Answer Date Recorded Q1: How often do you have a drink containing alc ohol? Never 04/24/2020 Average Number of Drinks Not on file 020 Frequency of Binge Drinking Not on file 04/07 PHQ-2 Answer Date Recorded Patient Health Questionnaire-2 Score 0 10/20/2024 Comments Unknown Sex and Gender Information Value Date Recorded Sex Assigned at Not on file Legal Sex Female 8:51 AM EDT Gender Identity Not on file Sexual Orientation Not on file documented as of this encounter Last Filed Vital Signs Vital Sign Reading Time Taken Comments Blood Pressure 120/70 12/27/2024 2:25 PM EDT Pulse 87 12/27/2024 2:25 PM EDT Temperature 36.6 C (97.8 F) 12/27/2024 2:25 PM EDT Respiratory Rate 14 12/27/2024 2:25 PM EDT Oxygen Saturation 96% 12/27/2024 2:25 PM EDT Inhaled Oxygen Concentration - - Weight 90.2 kg (198 lb 12.8 oz) 12/27/2024 2:25 PM EDT Height 167.6 cm (5' 6 ) 12/27/2024 2:25 PM EDT Body Mass Index 32.09 12/27/2024 2:25 PM EDT documented in this encounter Progress Notes * Kristy Durant, BOOKING POLICE OFFICER - 12/27/2024 2:30 PM EDT Date: 12/27/2024 Patient Name: Cristina Burnett : 1945 Chief Complaint: Chief Complaint Patient presents with Follow-up Skin problem left toe injury History of Present Illness: Cristina Burnett is a 79 y.o. female who is here today to follow up for HPI History of Present Illness The patient presents for evaluation of a skin issue. She continues to experience a skin issue in her groin area, which becomes red after showering. The condition has improved but remains sensitive. She has not yet started the prescribed treatment. She also reports a sore, scaly, and rough area at the top of her buttock crack. She has been using Neosporin and requests a larger prescription due to her remote location from a pharmacy. She has been applying powder, which keeps the area dry. Last year, she developed a painful spot on the right side ofher buttock, which was treated with various creams by Dr. Corey's assistant vice president over a month and a half. The spot was eventually treated with a chloride solution, which resolved the issue. However, the problem has since recurred. She was diagnosed with a urinary infection and prescribed steroids, which led to a yeast infection. After resolving the yeast infection, she developed pimples on her head. She was prescribed nystatin powder and clotrimazole cream by her lead network architect. She was also advised to discontinue Jardiance. She has not taken the medication until she is sure it will not cause a reaction. She has been picking around her fingernails constantly and has been dreaming every night for 3 months. She reports no anxiety. She reports soreness in her toe, which she believes may be due to arthritis or an injury. She does not recall any specific incident that could have caused the injury. The pain has been present for about a week and a half and disrupts her sleep. Social History: Sleep: She reports dreaming every night for 3 months. Review of Systems: Review of Systems Constitutional: See HPI I have reviewed the patients family history, social history, past medical history, past surgical history and have updated it as appropriate. Medications: Current Outpatient Medications: Accu-Chek FastClix Lancets misc, Testing 1 time per day; Dx: E11.65, Disp: 102 each, Rfl: 3 ascorbic acid (VITAMIN C) 1000 MG tablet, Take 1 tablet by mouth Daily., Disp: , Rfl: Blood Glucose Monitoring Suppl (Accu-Chek Guide) w/Device kit, 1 each Daily. Testing 1 time per day; Dx: E11.65, Disp: 1 kit, Rfl: 1 clotrimazole (LOTRIMIN) 1 % cream, Apply 1 Application topically to the appropriate area as directed 2 (Two) Times a Day., Disp: 113 g, Rfl: 2 empagliflozin (Jardiance) 10 MG tablet tablet, Take 1 tablet daily by mouth, Disp: 30 tablet, Rfl: 3 glucose blood (Accu-Chek Guide) test strip, Testing 1 time per day; Dx: E11.65, Disp: 100 each, Rfl: 3 linagliptin (Tradjenta) 5 MG tablet tablet, Take 1 tablet by mouth Daily., Disp: 90 tablet, Rfl: 1 metFORMIN (GLUCOPHAGE) 500 MG tablet, TAKE 2 TABLETS BY MOUTH TWICE DAILY, Disp: 360 tablet, Rfl: 1 multivitamin with minerals tablet tablet, Take 1 tablet by mouth Daily., Disp: , Rfl: nystatin (MYCOSTATIN) 035787 UNIT/GM powder, Apply topically to the appropriate area as directed 2 (Two) Times a Day., Disp: 180 g, Rfl: 2 Semaglutide (Rybelsus) 3 MG tablet, Take 1 tablet by mouth Daily., Disp: 30 tablet, Rfl: 5 simvastatin (ZOCOR) 20 MG tablet, Take 1 tablet by mouth Every Evening., Disp: 90 tablet, Rfl: 1 Allergies: Allergies Allergen Reactions Insulins Other (See Comments) Sleepiness, knots at injection sights, visual disturbances, pain PHQ-9 Total Score: Physical Exam: Vital Signs: Vitals: 12/27/24 1425 BP: 120/70 Pulse: 87 Resp: 14 Temp: 97.8 ??F (36.6 ??C) SpO2: 96% Weight: 90.2 kg (198 lb 12.8 oz) Height: 167.6 cm (66 ) Body mass index is 32.09 kg/m??. Physical Exam Assessment/Plan: Diagnoses and all orders for this visit: 1. Skin candidiasis (Primary) - clotrimazole (LOTRIMIN) 1 % cream; Apply 1 Application topically to the appropriate area as directed 2 (Two) Times a Day. Dispense: 113 g; Refill: 2 - nystatin (MYCOSTATIN) 691130 UNIT/GM powder; Apply topically to the appropriate area as directed 2 (Two) Times a Day. Dispense: 180 g; Refill: 2 2. SIMI (generalized anxiety disorder) 3. Pain of toe of left foot Assessment & Plan 1. Skin irritation. - The skin irritation in the groin area has shown significant improvement. - Physical examination reveals the area looks much better, though it remains sensitive. - Continued use of nystatin powder on the left side and clotrimazole cream on the right side is advised. Zinc oxide (Desitin) is also recommended. - Prescription for nystatin powder and clotrimazole cream has been sent to the pharmacy. She is advised to place a sheet or pillowcase between her legs at bedtime to reduce skin friction and aid in the healing process. 2. Anxiety. - Reports having dreams every night for the past three months. - No reported feelings of anxiety. - No further assessment or treatment for anxiety discussed. 3. Toe blister. - The toe blister appears to be a blister rather than a bone-related issue. - Physical examination indicates slight tenderness. - Advised to take Epsom salt baths and apply Neosporin to the affected area. - If there is no improvement, she should inform the clinic. Patient or patient aircraft sales representative verbalized consent for the use of Ambient Listening during the visit with Kristy Durant APRN for chart documentation. 12/27/2024 16:55 EDT Follow Up: Return if symptoms worsen or fail to improve. Kristy Durant. [facility] documented in this encounter Plan of Treatment Upcoming Encounters Date Type Department Care Team (Late st Contact Info) Description 02/21/2025 10:45 AM EDT Office Visit [facility] [address] [address] Mari [place] [address] [address] 11/13/2025 9:15 AM EDT Office Visit [facility] [address] [place] [phone] Panda Newell MD [address] [place] [address] documented as of this encounter Visit Diagnoses Diagnosis Skin candidiasis- Primary Candidiasis of skin and nails SIMI (generalized anxiety disorder) Generalized anxiety disorder Pain of toe of left foot documented in this encounter Care Teams Personal Development Mentor Relationship Specialty Start Date End Date Panda Newell MD [address] [place] [address] PCP - General Family Medicine 10/20/24 documented as of this encounter
--- OUTSIDE RECORDS SUMMARY | 2025-01-09 10:30 | XMS_ITS | Encounter Summary ---
Author Organization [facility] Address [address] [place] [id number] Care Team Providers Care Straight Pin Making Machine Operator Name Role Phone Panda Newell MD Primary Care Provider + Reason for Visit * Reason Comments Follow-up Rash not better Encounter Details Date Type Department Care Team (Late st Contact Info) Description 01/09/2025 10:30 AM EDT Office Visit [facility] [address] [place] [address] Kristy Durant, COLOR TELEVISION CONSOLE MONITOR [address] [place] [address] Wound of gluteal cleft, unspecified laterality, initial encounter (Primary Dx) Social History Tobacco Use Types Packs/Day Years [...] Sign Reading Time Taken Comments Blood Pressure 110/68 01/09/2025 9:55 AM EDT Pulse 67 01/09/2025 9:55 AM EDT Temperature 36.1 C (96.9 F) 01/09/2025 9:55 AM EDT Respiratory Rate 14 01/09/2025 9:55 AM EDT Oxygen Saturation 97% 01/09/2025 9:55 AM EDT Inhaled Oxygen Concentration - - Weight 91.8 kg (202 lb 6.4 oz) 01/09/2025 9:55 A M EDT Height 167.6 cm (5' 6 ) 01/09/2025 9:55 AM EDT Body Mass Index 32.67 01/09/2025 9:55 AM EDT documented in this encounter Progress Notes * Kristy Durant, COLOR TELEVISION CONSOLE MONITOR - 01/09/2025 10:30 AM EDT Images from the original note were not included. Date: 01/09/2025 Patient Name: Cristina Burnett : 1945 Chief Complaint: Chief Complaint Patient presents with Follow-up Rash not better History of Present Illness: Cristina Burnett is a 79 y.o. female who is here today to follow up for HPI History of Present Illness The patient presents for evaluation of a skin condition on her spine. She reports an improvement in her toe condition after modifying her work shoes, noting that a knot that had formed has since subsided. She mentions occasional spots on her skin, which she describes as sensitive. She does not spend much time sitting and is generally active. Despite using Desitin as recommended, the skin issue on her spine has worsened, with a sensation of it spreading up her spineand around her anus, causing discomfort. There are no burning or tingling sensations reported. The patient recalls starting Jardiance about 2.5 weeks ago, after which she noticed the symptoms. She discontinued Jardiance before her last visit here. She has been applying nystatin powder and clotrimazole cream, but these have not alleviated the symptoms. She takes showers in the morning and at night before bed, applying the cream each time. She was advised to consult a doctor, who recommendeddiscontinuing Jardiance due to potential interactions with her diabetes medication. She has been onTradjenta for several years, along with metformin and simvastatin. She was prescribed a weight lossmedication but is hesitant to start it until her current issue is resolved. She recalls removing a tick from the area a few years ago, which took 1.5 years to heal. Review of Systems: Review of Systems Skin: Positive for rash. I have reviewed the patients family history, [...] a Day., Disp: 113 g, Rfl: 2 glucose blood (Accu-Chek Guide) test strip, Testing [...] mouth Daily., Disp: , Rfl: nystatin (MYCOSTATIN) 026184 UNIT/GM powder, Apply topically to the appropriate area as directed 2 (Two) Times a Day., Disp: 180 g, Rfl: 2 Semaglutide (Rybelsus) 3 MG tablet, Take 1 tablet by mouth Daily., Disp: 30 tablet, Rfl: 5 simvastatin (ZOCOR) 20 MG tablet, Take 1 tablet by mouth Every Evening., Disp: 90 tablet, Rfl: 1 Menthol-Zinc Oxide (Calmoseptine) 0.44-20.6 % ointment, Apply 1 Application topically to the appropriate area as directed 2 (Two) Times a Day., Disp: 71 g, Rfl: 0 sulfamethoxazole-trimethoprim (Bactrim DS) 800-160 MG per tablet, Take 1 tablet by mouth 2 (Two) Times a Day for 10 days., Disp: 20 tablet, Rfl: 0 Allergies: Allergies Allergen Reactions Insulins Other (See Comments) Sleepiness, knots at injection sights, visual disturbances, pain PHQ-9 Total Score: Physical Exam: Vital Signs: Vitals: 01/09/25 0955 BP: 110/68 Pulse: 67 Resp: 14 Temp: 96.9 ??F (36.1 ??C) SpO2: 97% Weight: 91.8 kg (202 lb 6.4 oz) Height: 167.6 cm (66 ) Body mass index is 32.67 kg/m??. Physical Exam Vitals and nursing note reviewed. Constitutional: Appearance: Normal appearance. HENT: Head: Normocephalic and atraumatic. Cardiovascular: Rate and Rhythm: Normal rate and regular rhythm. Pulmonary: Effort: Pulmonary effort is normal. Breath sounds: Normal breath sounds. Skin: General: Skin is warm. Comments: Erythema with open skin Neurological: Mental Status: She is alert and oriented to person, place, and time. Assessment/Plan: Diagnoses and all orders for this visit: 1. Wound of gluteal cleft, unspecified laterality, initial encounter (Primary) - Menthol-Zinc Oxide (Calmoseptine) 0.44-20.6 % ointment; Apply 1 Application topically to the appropriate area as directed 2 (Two) Times a Day. Dispense: 71 g; Refill: 0 - sulfamethoxazole-trimethoprim (Bactrim DS) 800-160 MG per tablet; Take 1 tablet by mouth 2 (Two) Times a Day for 10 days. Dispense: 20 tablet; Refill: 0 Assessment & Plan 1. Skin condition gluteal cleft. - The skin condition on the spine has worsened, with discomfort spreading up the spine and around the anus. - Physical examination revealed skin breakdown at the base of the spine, with redness on both cheeks, but no blisters indicative of shingles. - Discussion included the possibility of bacterial versus yeast infection due to the location. The patient was advised to continue using Desitin for its healing properties. - Calmoseptine cream was prescribed for its cooling effect and zinc oxide content. A 10-day course of Bactrim was also prescribed, to be taken twice daily with food and plenty of water. The patient was advised to adjust her sitting position to avoid pressure on the affected area. Patient or patient jewelry sales representative verbalized consent for the use of Ambient Listening during the visit with Kristy Durant APRN for chart documentation. 01/10/2025 17:32 EDT Follow Up: Return if symptoms worsen or fail to improve, for Next scheduled follow up. Kristy Durant. STEFANIE [facility] documented in this encounter Plan of Treatment Upcoming Encounters Date Type Department Care Team (Late st Contact Info) Description 02/21/2025 10:45 AM EDT Office Visit [facility] [address] [phone] Mari Lawrence [place] [address] [address] 11/13/2025 9:15 AM EDT Office Visit [facility] [address] [place] [phone] Panda Newell MD [address] [place] [address] documented as of this encounter Visit Diagnoses Diagnosis Wound of gluteal cleft, unspecified laterality, initial encounter- Primary documented in this encounter Care Teams Straight Pin Making Machine Operator Relationship Specialty Start Date End Date Panda Newell MD [address] [place] [address] PCP - General Family Medicine 10/20/24 documented as of this encounter
--- OUTSIDE RECORDS SUMMARY | 2025-01-26 10:30 | XMS_ITS | Encounter Summary ---
Author Organization [facility] Address [address] [place] [address] Care Team Providers Care Camp Guard Name Role Phone Panda Newell MD Primary Care Provider + Reason for Referral * Diagnostic Imaging (Routine) - Authorized Specialty Diagnoses / Procedures Referred By Zahida t Referred To Contact Radiology Diagnoses Pain in the coccyx Procedures XR sacrum and coccyx Kristy Durant APRN [address] [place] [address] Phone: tel: fax: Referral ID Status Reason Start Date Expiration Date V isits Requested Visits Authorized Authorized 01/26/2025 04/27/2026 1 1 Reason for Visit * Reason Comments Follow-up Infection Encounter Details Date Type Department Care Team (Late st Contact Info) Description 01/26/2025 10:30 AM EDT Office Visit [facility] [address] [place] [address] Kristy Durant APRN [address] [place] [address] Wound of gluteal cleft, unspecified laterality, subsequent encounter (Primary Dx); Pain in the coccyx; Fall, subsequent encounter; Arthritis of right hand Social History Tobacco Use Types Packs/Day Years [...] Sign Reading Time Taken Comments Blood Pressure 138/60 01/26/2025 10:12 AM EDT Pulse 84 01/26/2025 10:12 AM EDT Temperature 36.4 C (97.5 F) 01/26/2025 10:12 AM EDT Respiratory Rate 20 01/26/2025 10:12 AM EDT Oxygen Saturation 97% 01/26/2025 10:12 AM EDT Inhaled Oxygen Concentration - - Weight 90.9 kg (200 lb 6.4 oz) 01/26/2025 10:12 AM EDT Height 167.6 cm (5' 6 ) 01/26/2025 10:12 AM EDT Body Mass Index 32.35 01/26/2025 10:12 AM EDT documented in this encounter Progress Notes * Kristy Durant, STEFANIE - 01/26/2025 10:30 AM EDT Images from the original note were not included. Date: 01/26/2025 Patient Name: Cristina Burnett : 1945 Chief Complaint: Chief Complaint Patient presents with Follow-up Infection History of Present Illness: Cristina Burnett is a 79 y.o. female who is here today to follow up for HPI History of Present Illness The patient presents for evaluation of a fall, spinal pain, hand pain, and oral discomfort. She reports a rough sensation on her spine, extending towards her anus. Application of a certain substance in this area results in a burning or cold sensation. She experiences pain when sitting, particularly in her spine. She also mentions occasional pain in her bones. She is planning a trip to [place] at the end of February 2025. She was prescribed Jardiance but is concerned about potential side effects such as yeast infections. She prefers to introduce new medications one at a time to monitor her body's response. She fell last night on concrete while transitioning from her RV to her house. The fall was caused by her cat running between her legs, leading her to fall onto a garbage can and then onto the concrete. She sustained bruises but does not report any soreness. She recalls a previous fall during a hikewhere she was told she had pulled a muscle. She has been diagnosed with tendinitis in her hand. Despite having strength in her thumb, she struggles with gripping objects, which often slip from her grasp. She experiences pain through her knuckle. She experienced tongue pain after taking antibiotics for a bacterial infection, which led her to discontinue the last two doses. Her gum also hurt, but the pain subsided after rinsing with salt water. Social History: Marital Status: Hobbies: Hiking Review of Systems: Review of Systems Constitutional: See hpi I have reviewed the patients family history, social history, past medical history, past surgical history and have updated it as appropriate. Medications: Current Outpatient Medications: Accu-Chek FastClix Lancets [facility], Testing 1 time per day; Dx: E11.65, [...] Dx: E11.65, Disp: 100 each, Rfl: 3 Menthol-Zinc Oxide (Calmoseptine) 0.44-20.6 % ointment, Apply 1 Application topically to the appropriate area as directed 2 (Two) Times a Day., Disp: 71 g, Rfl: 0 metFORMIN (GLUCOPHAGE) 500 MG tablet, TAKE 2 TABLETS BY MOUTH TWICE DAILY, Disp: 360 tablet, Rfl: 0 multivitamin with minerals tablet tablet, Take 1 tablet by mouth Daily., Disp: , Rfl: nystatin (MYCOSTATIN) [id number] UNIT/GM powder, Apply topically to the appropriate area as directed 2 (Two) Times a Day., Disp: 180 g, Rfl: 2 Semaglutide (Rybelsus) 3 MG tablet, Take 1 tablet by mouth Daily., Disp: 30 tablet, Rfl: 5 simvastatin (ZOCOR) 20 MG tablet, TAKE 1 TABLET BY MOUTH EVERY EVENING, Disp: 90 tablet, Rfl: 0 Tradjenta 5 MG tablet tablet, TAKE 1 TABLET BY MOUTH DAILY, Disp: 90 tablet, Rfl: 0 Allergies: Allergies Allergen Reactions Insulins Other (See Comments) Sleepiness, knots at injection sights, visual disturbances, pain PHQ-9 Total Score: Physical Exam: Vital Signs: Vitals: 01/26/25 1012 BP: 138/60 Pulse: 84 Resp: 20 Temp: 97.5 ??F (36.4 ??C) SpO2: 97% Weight: 90.9 kg (200 lb 6.4 oz) Height: 167.6 cm (66 ) Body mass index is 32.35 kg/m??. Physical Exam Vitals and nursing note reviewed. Constitutional: Appearance: Normal appearance. HENT: Head: Normocephalic and atraumatic. Cardiovascular: Rate and Rhythm: Normal rate and regular rhythm. Pulmonary: Effort: Pulmonary effort is normal. Breath sounds: Normal breath sounds. Musculoskeletal: Legs: Comments: Pain with palpation Skin: General: Skin is warm. Comments: Erythema, no opened skin Neurological: General: No focal deficit present. Mental Status: She is alert and oriented to person, place, and time. Assessment/Plan: Diagnoses and all orders for this visit: 1. Wound of gluteal cleft, unspecified laterality, subsequent encounter (Primary) 2. Pain in the coccyx - XR sacrum and coccyx; Future 3. Fall, subsequent encounter 4. Arthritis of right hand Assessment & Plan 1. Spinal pain: - The patient's spinal pain could be due to a minor displacement or a previous injury that may haveresulted in a chip. - The affected area looks much better, with reduced redness and no open wounds. - An x-ray of the spine will be ordered to further investigate the cause of the pain. - She is advised to maintain an upright posture while sitting, providing support to her lower back.Using a donut cushion is recommended for additional comfort. 2. Fall-related injuries: - The patient fell last night on concrete, resulting in bruises and soreness. - The affected area looks much better, with reduced redness and no open wounds. - She is advised to continue monitoring the area for any changes. 3. Hand pain: - The patient's hand pain is likely due to arthritis. - She is advised to apply Aspercreme or Voltaren gel to the affected area at least twice daily. Patient or patient solar manufacturer's representative verbalized consent for the use of Ambient Listening during the visit with Kristy Durant APRN for chart documentation. 01/26/2025 10:39 EDT Follow Up: Return for Next scheduled follow up. Kristy Durant. STEFANIE [facility] documented in this encounter Plan of Treatment Upcoming Encounters Date Type Department Care Team (Late st Contact Info) Description 02/21/2025 10:45 AM EDT Office Visit [facility] [address] [phone] Mari [place] [address] [address] 11/13/2025 9:15 AM EDT Office Visit [facility] [address] [phone] Panda Newell MD [address] [place] [address] Scheduled Orders Name Type Priority Associated Diagnoses Orde r Schedule XR sacrum and coccyx Imaging Routine Pain in the coccyx Expected: 01/29/2025, Expires: 04/28/2026 documented as of this encounter Visit Diagnoses Diagnosis Wound of gluteal cleft, unspecified laterality, subsequent encounter- Primary Pain in the coccyx Other disorder of coccyx Fall, subsequent encounter Arthritis of right hand documented in this encounter Care Teams Camp Guard Relationship Specialty Start Date End Date Panda Newell MD [address] [place] [address] PCP - General Family Medicine 10/20/24 documented as of this encounter
--- OUTSIDE RECORDS SUMMARY | 2025-01-29 16:18 | XMS_ITS | Encounter Summary ---
Author Organization [facility] Address [address] [place] [address] Care Team Providers Care Epic Cupid Specialists Name Role Phone Panda Newell MD Primary Care Provider + Encounter Details Date Type Department Care Team (Latest Contact Info) Description 12/27/2024 Travel Social History Tobacco Use Types Packs/Day Years [...] on file documented as of this encounter Plan of Treatment Upcoming Encounters Date Type Department Care Team (Late st Contact Info) Description 02/21/2025 10:45 AM EDT Office Visit [facility] [address] [place] [address] [phone] Mari Lawrence PA [address] [place] [address] [address] 11/13/2025 9:15 AM EDT Office Visit [facility] [address] [facility] [place] [address] Panda Newell MD [address] [facility] [place] [address] documented as of this encounter Visit Diagnoses Not on filedocumented in this encounter Care Teams Epic Cupid Specialists Relationship Specialty Start Date End Date Panda Newell MD [address] [place] [address] PCP - General Family Medicine 10/20/24 documented as of this encounter
--- OUTSIDE RECORDS SUMMARY | 2025-01-29 16:18 | XMS_ITS | Encounter Summary ---
Author Organization [facility] Address [address] [place] [address] Care Team Providers Care Surgical Sales Representative Name Role Phone Panda Newell MD Primary Care Provider + Reason for Visit * Reason Comments Med Refill Encounter Details Date Type Department Care Team (Late st Contact Info) Description 11/30/2022 Refill [facility] [address] [phone] Abram Fernandez MD [address] [address] Type 2 diabetes mellitus with hyperglycemia, without long-term current use of insulin Social History Tobacco Use Types Packs/Day Years [...] of Binge Drinking Not on file 04/07 Comments Unknown Sex and Gender Information Value Date Recorded Sex Assigned at Not on file Legal Sex Female 8:51 AM EDT Gender Identity Not on file Sexual Orientation Not on file documented as of this encounter Plan of Treatment Upcoming Encounters Date Type Department Care Team (Late st Contact Info) Description 02/21/2025 10:45 AM EDT Office Visit [facility] [address] [facility] [address] [place] [address] Mari Lawrence PA [address] [facility] [address] [place] [address] 11/13/2025 9:15 AM EDT Office Visit [facility] [address] [place] [phone] Panda Newell MD [address] [place] [address] documented as of this encounter Visit Diagnoses Diagnosis Type 2 diabetes mellitus with hyperglycemia, without long-term current use of insulin documented in this encounter Care Teams Surgical Sales Representative Relationship Specialty Start Date End Date Panda Newell MD [address] [place] [address] PCP - General Family Medicine 10/20/24 documented as of this encounter
--- OUTSIDE RECORDS SUMMARY | 2025-01-29 16:18 | XMS_ITS | Encounter Summary ---
Author Organization [facility] Address [address] [place] [phone] Care Team Providers Care C.O.D. Audit Clerk Name Role Phone Panda Newell MD Primary Care Provider + Reason for Visit * Reason Comments Med Refill Encounter Details Date Type Department Care Team (Late st Contact Info) Description 01/19/2025 Refill [facility] [address] [phone] Mari Lawrence [place] [address] [phone] Hypercholesterolemia; Type 2 diabetes mellitus with hyperglycemia, without [...] on file documented as of this encounter Miscellaneous Notes * Telephone Encounter - Brown Mullins MA - 01/19/2025 3:52 PM EDT Rx Refill Note Requested Prescriptions Pending Prescriptions Disp Refills simvastatin (ZOCOR) 20 MG tablet [Pharmacy Med Name: SIMVASTATIN 20MG TABLETS] 90 tablet 0 Sig: TAKE 1 TABLET BY MOUTH EVERY EVENING linagliptin (Tradjenta) 5 MG tablet tablet [Pharmacy Med Name: TRADJENTA 5MG TABLETS] 90 tablet 0 Sig: TAKE 1 TABLET BY MOUTH DAILY Last office visit with prescribing clinician: 10/25/2024 Next office visit with prescribing clinician: 01/19/2025 } Brown Mullins MA 01/19/25, 15:53 EDT documented in this encounter Plan of Treatment Upcoming Encounters Date Type Department Care Team (Late st Contact Info) Description 02/21/2025 10:45 AM EDT Office Visit [facility] [address] [phone] Mari Lawrence PA [address] [address] 11/13/2025 9:15 AM EDT Office Visit [facility] [address] [place] [phone] Panda Newell MD [address] [place] [address] documented as of this encounter Visit Diagnoses Diagnosis Hypercholesterolemia Pure hypercholesterolemia Type 2 diabetes mellitus with hyperglycemia, without long-term current use of insulin documented in this encounter Care Teams C.O.D. Audit Clerk Relationship Specialty Start Date End Date Panda Newell MD [address] [place] [address] PCP - General Family Medicine 10/20/24 documented as of this encounter
--- OUTSIDE RECORDS SUMMARY | 2025-01-29 16:18 | XMS_ITS | Encounter Summary ---
Author Organization [facility] Address [address] [place] [address] Care Team Providers Care Criminal Psychologist Name Role Phone Panda Newell MD Primary Care Provider + Encounter Details Date Type Department Care Team (Latest Contact Info) Description 01/09/2025 Travel Social History Tobacco Use Types Packs/Day [...] Description 02/21/2025 10:45 AM EDT Office Visit [facility] [address] [place] [address] [phone] Mari Lawrence PA [address] [place] [address] [address] 11/13/2025 9:15 AM EDT Office Visit [facility] [address] [place] [address] Panda Newell MD [address] [facility] [place] [address] documented as of this encounter Visit Diagnoses Not on filedocumented in this encounter Care Teams Criminal Psychologist Relationship Specialty Start Date End Date Panda Newell MD [address] [place] [address] PCP - General Family Medicine 10/20/24 documented as of this encounter
--- OUTSIDE RECORDS SUMMARY | 2025-01-29 16:18 | XMS_ITS | Clinical Summary ---
Author Organization [facility] Address [address] [place] [address] Phone Care Team Providers Care Community Relations Officer Name Role Phone Panda Newell Primary Care Provider Social History Tobacco Use Types Packs/Day Years Used Date Smoking Tobacco: Never Assessed Comments Unknown Sex and Gender Information Value Date Recorded Sex Assigned at Not on file Legal Sex Female 12:10 PM EDT Gender Identity Not on file Sexual Orientation Not on file Plan of Treatment Health Maintenance Due Date Last Done Comments Wellness Exam Medicare 1948 Hepatitis C Screening 1964 DTaP/TDaP/Td (1 - Tdap) 1965 Pneumococcal Vaccine 50+ (1 of 1 - PCV) 1996 Zoster (1 of 2) 1996 Bone Density Screening 2011 RSV or 60+ (1 - 1-d ose 75+ series) 2021 COVID-19 Vaccine ( - 2023-2 5 season) 2024 Influenza Vaccine (#1) 2025 Hepatitis B Vaccine Aged Out No longe r eligible based on patient's age to complete this topic Meningococcal B Vaccine Aged Out No l onger eligible based on patient's age to complete this topic Insurance HUMAN MEDICARE PPO MR Care Teams Community Relations Officer Relationship Specialty Start Date End Date Panda Newell [address] [place] [address] PCP - General Family Medicine 12/07/13
--- OUTSIDE RECORDS SUMMARY | 2025-01-29 16:19 | XMS_ITS | Encounter Summary ---
Author Organization [facility] Address [address] [place] [id number] Care Team Providers Care Production Planner Scheduler Name Role Phone Panda Newell MD Primary Care Provider + Reason for Visit * Reason Onset Date Comments CLARIFICATION ON DIRECTIONS FOR MEDICATIONS 11/05 Encounter Details Date Type Department Care Team (Late st Contact Info) Description 11/23/2024 Telephone [facility] FAMILY MEDICINE [address] [place] [address] Panda Newell MD [address] [place] [address] CLARIFICATION ON DIRECTIONS FOR MEDICATIONS Social History Tobacco Use Types Packs/Day Years [...] encounter Miscellaneous Notes * Telephone Encounter - Khadijah Cohen MA - 11/23/2024 2:39 PM EDT Kristy wants patient to apply the cream 2-3 times a day and apply powder on top so it will be dry. Spoke to patient directly and she voiced understanding. * Telephone Encounter - Galdino Ramsey - 11/23/2024 9:32 AM EDT PATIENT HAS CALLED REQUESTING A CALL BACK TO GET CLARIFICATION ON DIRECTIONS FOR clotrimazole (LOTRIMIN) 1 % cream AND nystatin (MYCOSTATIN) 019360 UNIT/GM powder PATIENT NEEDS TO KNOW IF SHE USES MEDICATION TOGETHER OR DOES SHE APPLY EACH SEPARATELY AT DIFFERENT TIMES. CALL BACK NUMBER IS [phone] documented in this encounter Plan of Treatment Upcoming Encounters Date Type Department Care Team (Late st Contact Info) Description 02/21/2025 10:45 AM EDT Office Visit [facility] ENDOCRINOLOGY [address] [address] Mari Lawrence PA [address] [address] 11/13/2025 9:15 AM EDT Office Visit [facility] FAMILY MEDICINE [address] [place] [phone] Panda Newell MD [address] [place] [address] documented as of this encounter Visit Diagnoses Not on filedocumented in this encounter Care Teams Production Planner Scheduler Relationship Specialty Start Date End Date Panda Newell MD [address] [place] [address] PCP - General Family Medicine 10/20/24 documented as of this encounter
--- OUTSIDE RECORDS SUMMARY | 2025-01-29 16:19 | XMS_ITS | Encounter Summary ---
Author Organization [facility] Address [address] [place] [address] Care Team Providers Care Refractory Technician Name Role Phone Panda Newell MD Primary Care Provider + Encounter Details Date Type Department Care Team (Latest Contact Info) Description 01/26/2025 Travel Social History Tobacco Use Types Packs/Day [...] Description 02/21/2025 10:45 AM EDT Office Visit [facility] ENDOCRINOLOGY [address] [phone] Mari Lawrence PA [address] [place] [address] [address] 11/13/2025 9:15 AM EDT Office Visit [facility] FAM[facility] MEDICINE [address] [facility] [place] [address] Panda Newell MD 210 [facility] [place] [address] documented as of this encounter Visit Diagnoses Not on filedocumented in this encounter Care Teams Refractory Technician Relationship Specialty Start Date End Date Panda Newell MD [address] [place] [address] PCP - General Family Medicine 10/20/24 documented as of this encounter
--- OUTSIDE RECORDS SUMMARY | 2025-01-29 16:19 | XMS_ITS | Encounter Summary ---
Author Organization [facility] Address [address] [place] [address] Care Team Providers Care Automotive Worker Foreman Name Role Phone Panda Newell MD Primary Care Provider + Encounter Details Date Type Department Care Team (Late st Contact Info) Description 01/19/2025 Refill [facility] ENDOCRINOLOGY [address] [facility] [address] [place] [address] Mari Lawrence PA 3084 [facility] [address] [place] [address] Type 2 diabetes mellitus with hyperglycemia, [...] Encounter - Brown Mullins MA - 01/19/2025 3:54 PM EDT Rx Refill Note Requested Prescriptions Pending Prescriptions Disp Refills metFORMIN (GLUCOPHAGE) 500 MG tablet 360 tablet 0 Sig: TAKE 2 TABLETS BY MOUTH TWICE DAILY Last office visit with prescribing clinician: 10/25/2024 Next office visit with prescribing clinician: 02/21/2025 } Brown Mullins MA 01/19/25, 15:54 EDT * Telephone Encounter - Romana Arechiga RegSched Rep - 01/19/2025 3:48 PM EDT PT NEEDS REFILL FOR METFORMIN 500 MG TABLET TO [facility] IN [place]. THANKS. documented in this encounter Plan of Treatment Upcoming Encounters Date Type Department Care Team (Late st Contact Info) Description 02/21/2025 10:45 AM EDT Office Visit [facility] ENDOCRINOLOGY [address] [phone] Mari Lawrence PA [address] [address] 11/13/2025 9:15 AM EDT Office Visit [facility] FAMILY MEDICINE [address] [facility] [place] [phone] Panda Newell MD [address] [place] [address] documented as of this encounter Visit Diagnoses Diagnosis Type 2 diabetes mellitus with hyperglycemia, without long-term current use of insulin documented in this encounter Care Teams Automotive Worker Foreman Relationship Specialty Start Date End Date Panda Newell MD [address] [place] [address] PCP - General Family Medicine 10/20/24 documented as of this encounter
--- OUTSIDE RECORDS SUMMARY | 2025-01-29 16:19 | XMS_ITS | Clinical Summary ---
Author Organization [facility] Address [address] [place] [id number] Care Team Providers Care Wood Fence Installer Name Role Phone Panda Newell MD Primary Care Provider + Allergies Active Allergy Reactions Criticality Noted Date Comments Insulins Other (See Comments) Medium 04/24/2020 Sleepiness, knots at injection sights, visual disturbances, pain Medications ascorbic acid (VITAMIN C) 1000 MG tablet Take 1 tablet by mouth Daily. Active Accu-Chek FastClix Lancets miscIndication s:Type 2 diabetes mellitus with hyperglycemia, without long-term current use of insulin Testing 1 time per day; Dx: E11.65 102 each 3 11/26/19 Active Blood Glucose Monitoring Suppl (Accu-Chek Guide) w/Device kitIndications :Type 2 diabetes mellitus with hyperglycemia, without long-term current use of insulin 1 each Daily. Testing 1 time per day; Dx: E11.65 1 kit 1 11/26/19 Active glucose blood (Accu-Chek Guide) test stripIndicatio ns:Type 2 diabetes mellitus with hyperglycemia, without long-term current use of insulin Testing 1 time per day; Dx: E11.65 100 each 3 11/26/19 23 Active multivitamin with minerals tablet tablet Take 1 tablet by mouth Daily. Active Semaglutide (Rybelsus) 3 MG tablet Take 1 tablet by mouth Daily. 30 tablet 5 11/22/19 25 Active clotrimazole (LOTRIMIN) 1 % creamIndicatio ns:Skin candidiasis Apply 1 Application topically to the appropriate area as directed 2 (Two) Times a Day. 113 g 2 12/28/19 25 Active nystatin (MYCOSTATIN) 218129 UNIT/GM powderIndicati ons:Skin candidiasis Apply topically to the appropriate area as directed 2 (Two) Times a Day. 180 g 2 12/28/19 25 Active Menthol-Zinc Oxide (Calmoseptine) 0.44-20.6 % ointmentIndica tions:Wound of gluteal cleft, unspecified laterality, initial encounter Apply 1 Application topically to the appropriate area as directed 2 (Two) Times a Day. 71 g 01/10/20 25 Active simvastatin (ZOCOR) 20 MG tabletIndicati ons:Hyperchole sterolemia TAKE 1 TABLET BY MOUTH EVERY EVENING 90 tablet 01/22/20 25 Active Tradjenta 5 MG tablet tabletIndicati ons:Type 2 diabetes mellitus with hyperglycemia, without long-term current use of insulin TAKE 1 TABLET BY MOUTH DAILY 90 tablet 01/22/20 25 Active metFORMIN (GLUCOPHAGE) 500 MG tabletIndicati ons:Type 2 diabetes mellitus with hyperglycemia, without long-term current use of insulin TAKE 2 TABLETS BY MOUTH TWICE DAILY 360 tablet 01/22/20 25 Active empagliflozin (Jardiance) 10 MG tablet tabletIndicati ons:Type 2 diabetes mellitus with hyperglycemia, without long-term current use of insulin Take 1 tablet daily by mouth 30 tablet 3 10/26/19 25 025 Discontinued(* Therapy completed) linagliptin (Tradjenta) 5 MG tablet tabletIndicati ons:Type 2 diabetes mellitus with hyperglycemia, without long-term current use of insulin Take 1 tablet by mouth Daily. 90 tablet 1 10/27/19 25 025 Discontinued metFORMIN (GLUCOPHAGE) 500 MG tabletIndicati ons:Type 2 diabetes mellitus with hyperglycemia, without long-term current use of insulin TAKE 2 TABLETS BY MOUTH TWICE DAILY 360 tablet 1 10/27/19 25 025 Discontinued(R eorder) simvastatin (ZOCOR) 20 MG tabletIndicati ons:Hyperchole sterolemia Take 1 tablet by mouth Every Evening. 90 tablet 1 10/27/19 25 025 Discontinued sulfamethoxazo le-trimethopri m (Bactrim DS) 800-160 MG per tabletIndicati ons:Wound of gluteal cleft, unspecified laterality, initial encounter Take 1 tablet by mouth 2 (Two) Times a Day for 10 days. 20 tablet 01/10/20 25 025 Active Problems Problem Noted Date Diagnosed Date Class 1 obesity due to exces s calories with serious comorbidity and body mass index (BMI) of 31.0 to 31.9 in adult 02/18/2021 Type 2 diabetes mellitus wit h hyperglycemia, without long-term current use of insulin 04/23/2020 Assessment & Plan (10/26/2024 1:29 PM EDT): Diabetes is worsening. Medication changes per orders. Recommended an ADA diet. Regular aerobic exercise. Reminded to get yearly retinal exam. Discussed medication options with worsening A1c. Elected to try SGLT2 inhibitor that would also potentially help with elevated blood pressure. Discussed risk of symptoms. Send in Jardiance 10 mg for patient to start taking daily. She is nervous about reaction due to her history of sensitivity with medications so she will start with half a tablet and increase slowly as tolerated to 1 full tablet daily. Eye exam up-to-date, foot exam up-to-date, fasting labs reviewed from PCP and up-to-date, urine microalbumin creatinine ratio done today. Diabetes will be reassessed in 3 months Hypercholesterolemia 04/23/2020 Encounters Date Type Department Care Team Description 01/26/2025 10:30 AM EDT Office Visit [facility] MEDICINE [address] [place] [address] Kristy Durant APRN Wound of gluteal cleft, unspecified laterality, subsequent encounter (Primary Dx); Pain in the coccyx; Fall, subsequent encounter; Arthritis of right hand 01/26/2025 Travel 01/19/2025 Refill [facility] ENDOCRINOLOGY [address] [place] [address] Mari Lawrence PA Type 2 diabetes mellitus with hyperglycemia, without long-term current use of insulin 01/19/2025 Refill [facility] ENDOCRINOLOGY [address] [place] [address] Mari Lawrence PA Hypercholesterolemia ; Type 2 diabetes mellitus with hyperglycemia, without long-term current use of insulin 01/09/2025 10:30 AM EDT Office Visit [facility] FAMILY MEDICINE [address] [place] [address] Kristy Durant, SCIENTIFIC DIVER Wound of gluteal cleft, unspecified laterality, initial encounter (Primary Dx) 01/09/2025 Travel 12/27/2024 2:30 PM EDT Office Visit [facility] FAMILY MEDICINE [address] [address] Kristy Durant, SCIENTIFIC DIVER Skin candidiasis (Primary Dx); SIMI (generalized anxiety disorder); Pain of toe of left foot 12/27/2024 Travel 11/23/2024 Telephone [facility] MEDICINE [address] [place] [address] Panda Newell MD CLARIFICATION ON DIRECTIONS FOR MEDICATIONS 11/22/2024 Prior Authorization [facility] ENDOCR[facility]OLOG[facility] [address] [place] [address] Mari Lawrence PA [facility] Approval 11/21/2024 Telephone [facility] ENDOCRINOLOGY [address] [place] [address] Mari Lawrence PA 11/20/2024 3:45 PM EDT Office Visit [facility] MEDICINE [address] [facility] [place] [address] Kristy Durant, SCIENTIFIC DIVER Skin candidiasis (Primary Dx); Type 2 diabetes mellitus with hyperglycemia, without long-term current use of insulin 11/20/2024 Travel 11/03/2024 Telephone [facility] ENDOCRINOLOG[facility] [address] [place] [address] Mari Lawrence PA ED - Called Back For Treatment Only from Last 3 Months Immunizations Immunization Administration Dates Next Due COVID-19 (FARZANEH) 11/14/2020 COVID-19 (MODERNA) BIVALENT 12+YRS 10/02/2022 Family History Medical History Relation Name Comments Cerebral aneurysm Father Parkinsonism Mother Relation Name Status Comments Father Mother Social History Tobacco Use Types Packs/Day Years Used Date Smoking Tobacco: Never Smokeless Tobacco: Never Tobacco Cessation:Counseling Given: Not Answered Alcohol Use Standard Drinks/Week Comments Never 0 [...] on file Sexual Orientation Not on file Last Filed Vital Signs Vital Sign Reading [...] Mass Index 32.35 01/26/2025 10:12 AM EDT Plan of Treatment Upcoming Encounters Date Type Department Care Team (Late st Contact Info) Description 02/21/2025 10:45 AM EDT Office Visit [facility] ENDOCRINOLOGY [address] [phone] Mari Lawrence PA [address] [place] [address] [address] 11/13/2025 9:15 AM EDT Office Visit [facility] FAMILY MEDICINE [address] [facility] [place] [address] Panda Newell MD [address] [place] [address] Health Maintenance Due Date Last Done Comments DXA SCAN 1945 Pneumococcal Vaccine 50+ (1 of 2 - PCV) 1965 TDAP/TD VACCINES (1 - Tdap) 1965 ZOSTER VACCINE (1 of 2) 1996 ANNUAL WELLNESS VISIT 03/11/2020 HEPATITIS C SCREENING 03/11/2020 RSV Vaccine - Adults (1 - 1-dose 75+ series) 2021 DIABETIC EYE EXAM 09/17/2021 09/17/2020 LIPID PANEL 09/19/2024 09/20/2023, 07/2 , 03/12/2021, Additional history exists DIABETIC FOOT EXAM 09/21/2024 09/22/2023, 0 11/25/2022, 11/25/2022, Additional history exists COVID-19 Vaccine ( season) 2025 10/02/2022, 11/14/2020 Postponed from 02/06/2024 (Product Unavailable) INFLUENZA VACCINE 03/07/2025 HEMOGLOBIN A1C 04/27/2025 10/25/2024, 09/05, 11/25/2022, Additional history exists URINE MICROALBUMIN-CREATININE RATIO (uACR) 10/25/2025 10/25/2024, 09/20/2023, 03/12/2021, Additional history exists MAMMOGRAM Discontinued 01/04/2014, 12/07, 12/22/2012, Additional history exists Procedures Procedure Name Priority Date/Time Associated Diagnosis Comments MICROALBUMIN / CREATININE URINE RATIO Routine 10/25/2024 12:03 PM EDT Type 2 diabetes mellitus with hyperglycemia, without long-term current use of insulin POCT GLYCOSYLATED HEMOGLOBIN (HGB A1C) Routine 10/25/2024 11:32 AM EDT Type 2 diabetes mellitus with hyperglycemia, without long-term current use of insulin LIPID PANEL Routine 09/20/2023 2:17 PM EDT Type 2 diabetes mellitus with hyperglycemia, without long-term current use of insulin Hypercholesterolemi a SCANNED - EYE EXAM 09/17/2020 from Last 3 Months or Most Recently Relevant to Health Maintenance Results * Microalbumin / Creatinine Urine Ratio - Urine, Clean Catch (10/25/2024 12:03 PM EDT) [facility] Microalbumin/C reatinine Ratio 14.1 0.0 - 29.0 mg/g 10/26/2024 12:07 AM EDT [facility] Creatinine, Urine 212.6 mg/dL 10/26/2024 12:07 AM EDT [facility] Microalbumin, Urine 3.0 mg/dL 10/26/2024 12:07 AM EDT [facility] Urine Urine specimen obtained by clean catch procedure / Unknown Collection / Unknown 10/25/2024 12:03 PM EDT 10/25/2024 12:04 PM EDT Mari WRIGHT URINE ORDERABLES Final Result Performing Organization Address [facility]/ZIP Co de Phone Number [facility]
[address] [place] [address], * (ABNORMAL) POC Glycosylated Hemoglobin (Hb A1C) (10/25/2024 11:32 AM EDT) [facility] Hemoglobin A1C 9.0(A) 4.5 - 5.7 % [facility] Lot Number [id number] [facility] Expiration Date 08/02/26 [facility] Blood 10/25/2024 11:3 2 AM EDT Mari WRIGHT POINT OF CARE TEST ORDERABLES F inal Result [facility]
[address] [place] [id number], * Lipid Panel (09/20/2023 2:17 PM EDT) Blood Angie Solano PA-C LAB BLOOD ORDERABLES Final Result [facility] (AMBULATORY) [address] [place] [address], [place] [phone] * SCANNED - EYE EXAM (09/17/2020) Anatomical Region Laterality Modality Other Abram Fernandez MD CHART REVIEW TABS Gabriela l Result from Last 3 Months or Most Recently Relevant to Health Maintenance Insurance [facility] [employer] PPO Care Teams Wood Fence Installer Relationship Specialty Start Date End Date Panda Newell MD [address] [place] [address] PCP - General Family Medicine 10/20/24
--- NOTE | 2025-01-29 16:20 | XR_ITS ---
FINAL REPORT CLINICAL HISTORY: PAIN IN THE COCCYX FINDINGS: AP and lateral views of the sacrum and coccyx were obtained. There is no prior exam for comparison. There is no acute fracture or other acute osseous abnormality. The SI joints are symmetric bilaterally. 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 No acute soft tissue abnormality is present. IMPRESSION: No acute abnormality of the sacrum or coccyx. Reviewed, Interpreted and Dictated by Christine Matson MD Transcribed by Katherine Ernandez Authenticated and [facility]
== END 2025-01-29 23:59 | disposition home or self-care (01) ==
LOC: RAD 16:17
PROVIDERS: PCP Family Medicine; Visit Provider Nurse Practitioner Family
DX: M53.3 Sacrococcygeal disorders, not elsewhere classified (principal)
CPT/HCPCS: 72220